=== PATIENT | male | born 1985 | race Caucasian/White ===

== ENCOUNTER 2017-10-20 21:54 | Emergency (ER) | payer MEDICAID ==
[~2017-10-20] VITALS: Ht 172.7 cm; Wt 69.0 kg
[2017-10-20 22:12] VITALS: BP 116/64
== END 2017-10-21 04:27 | disposition left against medical advice (07) ==
LOC: ER 21:54
DX: R55 Syncope and collapse (principal); Z53.21 Procedure and treatment not carried out due to patient leaving prior to being seen by health care provider